=== PATIENT | female | born 1985 | race African-American/Black ===

== ENCOUNTER 2019-05-04 08:38 | Inpatient (IN) | payer MEDICARE, MEDICAID ==
[~2019-05-04] VITALS: Ht 175.3 cm; Wt 77.1 kg
[2019-05-04] MEDS ORDERED: HYDROCODONE/ACETAMINOPHEN 10/325MG TABLET PO ONE ×2 (10:15→16:00)
[2019-05-04] MEDS ORDERED: HYDROCODONE/ACETAMINOPHEN 5/325MG TABLET PO ONE (10:15)
[2019-05-04 11:42] LABS: BASOPHILS % 0.5 % (0.0-2.0); EOSINOPHILS % 0.5 % (0.0-5.0); HEMATOCRIT. 29.3 % (36.0-48.0); HEMOGLOBIN. 9.4 g/dL (12.0-16.0); LYMPHOCYTES % 9.1 % (20.0-50.0); MEAN CORPUSCULAR HEMOGLOBIN 26.8 pg (28.0-32.0); MEAN CORPUSCULAR VOLUME 83.5 fL (81.0-99.0); MONOCYTES % 5.4 % (2.0-8.0); NEUTROPHILS % 84.5 % (40.0-76.0); PLATELET 368 x1000/uL (130-400); RED BLOOD CELL COUNT 3.51 mill/uL (4.2-5.4); RED CELL DISTRIBUTION WIDTH 20.5 % (11.6-14.6)
[2019-05-04 11:52] LABS: CHLORIDE 105 mEq/L (98-107)
[2019-05-04] MEDS ORDERED: IOHEXOL-300 100 ML BOTTLE ONE (13:33)
[2019-05-04] MEDS ORDERED: AMPICILLIN SOD/SULBACTAM NA 3 G in SODIUM CHLORIDE 0.9% 100 ML IV STA (14:09)
[2019-05-04] MEDS ORDERED: MORPHINE SULFATE 4 MG/ML CPJ (NOT FOR IM USE) IV ONE (14:15)
[2019-05-04 16:00] VITALS: BP 181/101
[2019-05-04 16:30] VITALS: BP 181/101
[2019-05-04] MEDS: SODIUM CHLORIDE 0.45% 1,000 ML IV SCH (16:39)
[2019-05-04] MEDS ORDERED: ONDANSETRON HCL 4MG/2ML INJ IV PRN (16:45)
[2019-05-04] MEDS ORDERED: DOCUSATE SODIUM 100MG CAPSULE PO PRN (16:45)
[2019-05-04] MEDS ORDERED: PIPERACILLIN/TAZ 3.375G PREMIX 50 ML IV SCH (16:45)
[2019-05-04] MEDS ORDERED: ACETAMINOPHEN 325MG TABLET PO PRN (16:45)
[2019-05-04] MEDS: CLONIDINE 0.1MG TABLET PO PRN ×2 (17:32→23:31)
[2019-05-04] MEDS: PIPERACILLIN/TAZOBACTAM 3.375 G in DEXT 5% WATER 100 ML IV SCH (19:54)
[2019-05-04 20:00] VITALS: BP 183/96
[2019-05-04] MEDS: HYDROCODONE/ACETAMINOPHEN 5/325MG TABLET PO PRN (20:05)
[2019-05-04] MEDS: VANCOMYCIN 1 G PREMIX 200 ML IV SCH (20:44)
[2019-05-05] VITALS (8 sets, daily range): BP systolic 146–190; BP diastolic 71–101
[2019-05-05] MEDS: HYDROCODONE/ACETAMINOPHEN 5/325MG TABLET PO PRN ×3 (00:22→22:16)
[2019-05-05] MEDS: PIPERACILLIN/TAZOBACTAM 3.375 G in DEXT 5% WATER 100 ML IV SCH ×5 (01:33→21:34)
[2019-05-05] MEDS: VANCOMYCIN 1 G PREMIX 200 ML IV SCH ×4 (03:35→21:33)
[2019-05-05] MEDS: CLONIDINE 0.1MG TABLET PO PRN ×2 (05:18→13:26)
[2019-05-05] MEDS: SODIUM CHLORIDE 0.45% 1,000 ML IV SCH ×2 (05:59→19:13)
[2019-05-05] MEDS: AMLODIPINE 10MG TABLET PO SCH (06:33)
[2019-05-05 07:31] LABS: HEMATOCRIT. 27.1 % (36.0-48.0); HEMOGLOBIN. 8.8 g/dL (12.0-16.0); MEAN CORPUSCULAR HEMOGLOBIN 26.7 pg (28.0-32.0); MEAN CORPUSCULAR VOLUME 82.5 fL (81.0-99.0); MEAN PLATELET VOLUME 8.5 fl (7.4-10.4); PLATELET 350 x1000/uL (130-400); RED BLOOD CELL COUNT 3.28 mill/uL (4.2-5.4); RED CELL DISTRIBUTION WIDTH 20.3 % (11.6-14.6)
[2019-05-05 07:46] LABS: CHLORIDE 106 mEq/L (98-107)
[2019-05-05 11:04] LABS: PLATELET ESTIMATE NORMAL
[2019-05-05] MEDS ORDERED: POTASSIUM CHLORIDE INJ 40 MEQ in DEXT 5% WATER 250 ML IV SCH (12:00)
[2019-05-05] MEDS: METOPROLOL TARTRATE 50MG TABLET PO SCH (21:33)
[2019-05-06] VITALS: BP 116/62
[2019-05-06] MEDS: PIPERACILLIN/TAZOBACTAM 3.375 G in DEXT 5% WATER 100 ML IV SCH ×3 (02:55→14:32)
[2019-05-06 04:00] VITALS: BP 148/53
[2019-05-06] MEDS ORDERED: VANCOMYCIN 1 G PREMIX 200 ML IV SCH (06:00)
[2019-05-06 08:00] VITALS: BP 155/90
[2019-05-06] MEDS: AMLODIPINE 10MG TABLET PO SCH (08:57)
[2019-05-06] MEDS: METOPROLOL TARTRATE 50MG TABLET PO SCH (08:57)
[2019-05-06] MEDS: SODIUM CHLORIDE 0.45% 1,000 ML IV SCH (08:58)
[2019-05-06 12:00] VITALS: BP 141/82
[2019-05-06 14:56] VITALS: BP 135/57
[2019-05-06 16:00] VITALS: BP 146/70
== END 2019-05-06 15:55 | disposition home or self-care (01) | DRG 158 ==
LOC: ER 08:38 → 6EST 15:39 → EDBEDREQ 15:59 → EDBEDREQTM 15:59 → ENRESERV 16:04 → SUPCPDRO 16:38 → 6WST 05-05 01:09
PROVIDERS: ADMIT Hospitalist; ATTEND Hospitalist
DX: M27.2 Inflammatory conditions of jaws (principal); M86.8X8 Other osteomyelitis, other site; G82.20 Paraplegia, unspecified; F17.200 Nicotine dependence, unspecified, uncomplicated; I10 Essential (primary) hypertension; K02.9 Dental caries, unspecified; Z99.3 Dependence on wheelchair
CPT/HCPCS: 36415; 70487; 80053; 80202; 85025; 96374; 99285; J0295; J2270; J2543; J3370; J3480; J7050; J7060; Q9967